=== PATIENT | female | born 1960 | race Hispanic/Latino ===

== ENCOUNTER → 2025-03-14 | Day surgery (SDC) | payer MEDICARE, OTHER ==
[2025-03-09 11:40] LABS: BASOPHILS % 0.2 % (0.0-1.0); EOSINOPHILS % 2.0 % (0.0-6.0); LYMPHOCYTES % 27.6 % (18.0-39.1); MONOCYTES % 7.2 % (4.4-11.3); NEUTROPHILS % 62.6 % (38.7-80.0); RED CELL DISTRIBUTION WIDTH 13.1 % (11.7-14.4)
[~2025-03-14] MED LIST: AMLODIPINE BESY10 MG PO; ATORVASTATIN CA20 MG PO; CALCIUM ACETAT667 MG PO; CELEBREX200 MG PO; CO Q-10200 MG PO; FENTANYL CITRATE/PF 100MCG/2 ML INJ ONE; GLIPIZIDE ER5 MG PO; HUMALOG MI100 UNIT/2 SQ; LATANOPROST2.5 ML OU; LIDOCAINE HCL 2% LOCAL INJ 5 ML SDV VIAL INJ ONE; LOSARTAN POTASS50 MG PO; METFORMIN HCL500 M1 PO; MONTELUKAST SOD10 MG PO; OMEPRAZOLE40 MG PO; ONDANSETRON HCL INJ 2MG/ML 2ML 2 MG/ML VIAL ONE; PROPOFOL IV EMULSION 50 ML IV ONE; TRESIBA FL100 UNIT/1 SC; VITAMIN B-121000 MCG PO; VITAMIN D3 COM1 EACH PO
[2025-03-14] MEDS: LACTATED RINGER'S 1,000 ML ONE (09:51)
[2025-03-14 13:50] VITALS: BP 144/79; PULSE 67; RESP 15; O2SAT 98
== END | disposition home or self-care (01) ==
LOC: OR 08:37
PROVIDERS: ATTEND Internal Medicine Gastroenterology
DX: K29.50 Unspecified chronic gastritis without bleeding (principal); K44.9 Diaphragmatic hernia without obstruction or gangrene; K21.9 Gastro-esophageal reflux disease without esophagitis; D12.2 Benign neoplasm of ascending colon; K64.8 Other hemorrhoids; K59.00 Constipation, unspecified; I10 Essential (primary) hypertension; E11.9 Type 2 diabetes mellitus without complications; Z79.84 Long term (current) use of oral hypoglycemic drugs; Z79.899 Other long term (current) drug therapy; Z68.37 Body mass index [BMI] 37.0-37.9, adult; Z88.2 Allergy status to sulfonamides; Z01.810 Encounter for preprocedural cardiovascular examination; Z01.812 Encounter for preprocedural laboratory examination; Z79.1 Long term (current) use of non-steroidal anti-inflammatories (NSAID)
CPT/HCPCS: 36415 ×2; 43239; 45384; 82948; 85025; 88305; 93005; J2003; J2405; J2704; J3010; J7121; 45378; 88312